=== PATIENT | female | born 1980 | race Two or more races ===

== ENCOUNTER 2019-05-26 22:37 | Emergency (ER) | payer OTHER ==
[~2019-05-26] VITALS: Ht 162.6 cm; Wt 81.6 kg
[2019-05-27 02:29] VITALS: BP 136/73
[2019-05-27] MEDS ORDERED: cefTRIAXone SOD 1,000 MG VL IM ONE (02:30)
[2019-05-27] MEDS ORDERED: AMOXICILLIN/CLAVUL 875 MG TAB PO ONE (02:30)
[2019-05-27] MEDS ORDERED: ACETAMINOPHEN/CODEINE#3 (300/30mg) TAB PO ONE (02:30)
[2019-05-27] MEDS ORDERED: LIDOCAINE 2%HCL (LOCAL ANESTH.) INJ 20ML MDV ONE (03:10)
== END 2019-05-27 03:52 | disposition home or self-care (01) ==
LOC: ER 22:37
DX: S61.412A Laceration without foreign body of left hand, initial encounter (principal); W54.0XXA Bitten by dog, initial encounter; Y93.89 Activity, other specified; Y92.89 Other specified places as the place of occurrence of the external cause; Y99.0 Civilian activity done for income or pay
CPT/HCPCS: 12002; 73120; 99283; J0696